=== PATIENT | male | born 1935 | race Two or more races ===

== ENCOUNTER 2020-12-19 21:20 | Emergency (ER) | payer OTHER ==
[~2020-12-19] VITALS: Ht 167.6 cm; Wt 62.6 kg
[2020-12-19] MEDS ORDERED: LOSARTAN-HCTZ1 EAC1 (21:40)
[2020-12-19] MEDS ORDERED: ADALAT CC90 MG (21:40)
[2020-12-19] MEDS ORDERED: PLAVIX75 MG (21:40)
[2020-12-19] MEDS ORDERED: BACLOFEN10 MG (21:41)
[2020-12-19] MEDS ORDERED: NEURONTIN300 MG (21:41)
[2020-12-20] MEDS ORDERED: MECLIZINE HCL25 MG PO (05:45)
== END 2020-12-20 06:21 | disposition home or self-care (01) ==
LOC: ER 21:20
DX: R42 Dizziness and giddiness (principal)

== ENCOUNTER 2021-05-14 13:19 | Emergency (ER) | payer OTHER ==
[~2021-05-14] VITALS: Ht 160 cm; Wt 63.5 kg
[~2021-05-14 13:19] MED LIST: ADALAT CC90 MG; BACLOFEN10 MG; LOSARTAN-HCTZ1 EAC1; MECLIZINE HCL25 MG PO; NEURONTIN300 MG; PLAVIX75 MG
== END 2021-05-14 15:28 | disposition home or self-care (01) ==
LOC: ER 13:19
DX: M79.642 Pain in left hand (principal); M25.512 Pain in left shoulder

== ENCOUNTER 2022-04-14 15:27 | Emergency (ER) | payer OTHER ==
[~2022-04-14] VITALS: Ht 160 cm; Wt 62.6 kg
[2022-04-14] MEDS ORDERED: DUI500 PO (19:43)
== END 2022-04-14 19:45 | disposition home or self-care (01) ==
LOC: ER 15:27
DX: J03.90 Acute tonsillitis, unspecified (principal); R07.0 Pain in throat; I10 Essential (primary) hypertension; Z86.73 Personal history of transient ischemic attack (TIA), and cerebral infarction without residual deficits